=== PATIENT | female | born 1970 | race Caucasian/White ===

== ENCOUNTER 2022-08-31 00:34 | Emergency (ER) | payer OTHER ==
[~2022-08-31] VITALS: Ht 165.1 cm; Wt 86.2 kg
[~2022-08-31 00:34] MED LIST: NORCO 5-325 TA1 EACH PO; PREDNISONE20 MG PO
--- OUTSIDE RECORDS SUMMARY | 2022-08-31 00:36 | XMS ---
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 E.Za VISIT COUNT (12 MO.) [address] TOTAL 3 NOTE: Visits indicate total known visits. ED/UCC VISIT TRACKING (12 MO.) 08/31/2022 00:35 [facility] [place] TYPE: Emergency COMPLAINT: - CP 08/20/2022 11:31 [facility] [place] TYPE: Emergency DIAGNOSES: - Chest pain, unspecified - CHEST PAIN 08/02/2022 12:51 [facility] [place] TYPE: Emergency DIAGNOSES: - Paroxysmal atrial fibrillation - NEW ONSET AFIB INPATIENT VISIT TRACKING (12 MO.) No inpatient visits to display in this time frame [email or web address]
[2022-08-31] MEDS ORDERED: METOPROLOL SUCC25 MG PO (00:48)
[2022-08-31] MEDS ORDERED: ESTRADIOL42.5 GM TOP (00:49)
[2022-08-31] MEDS ORDERED: IBUPROFEN800 MG PO (00:49)
[2022-08-31] MEDS ORDERED: ASPIRIN81 MG PO (00:50)
--- NOTE | 2022-08-31 15:09 | EKG ---
[facility] [address] [facility] [place] [address] Signed Atrial fibrillation Nonspecific ST abnormality Prolonged QT Abnormal ECG No previous ECGs available Confirmed by ATILIO HARPER MD ([id number] on 08/31/2022 3:09:10 PM Electronically Signed By: ATILIO HARPER MD 08/31/22 1509 PATIENT NAME: XIMENA COLLINS Electrocardiogram DATE OF : 66 PHYSICIAN: ATILIO HARPER MD REPORT #: [id number] REPORT IS CONFIDENTIAL AND NOT TO BE RELEASED WITHOUT AUTHORIZATION
== END 2022-08-31 01:28 | disposition home or self-care (01) ==
LOC: ED 00:34
DX: I48.91 Unspecified atrial fibrillation (principal); Z79.899 Other long term (current) drug therapy; Z79.82 Long term (current) use of aspirin
CPT/HCPCS: 36415; 71045; 80053; 83735; 84484; 85025; 93005; 93010; 99285-25